=== PATIENT | male | born 2000 | race African-American/Black ===

== ENCOUNTER 2019-09-05 22:54 | Emergency (ER) | payer SELFPAY ==
[~2019-09-05 22:54] MED LIST: EPINEPHRINE 1 MG/10 ML-NACL IV ONE
== END 2019-09-06 00:57 | disposition expired ==
LOC: NAV ERS 22:54
DX: S31.000A Unspecified open wound of lower back and pelvis without penetration into retroperitoneum, initial encounter (principal); W34.00XA Accidental discharge from unspecified firearms or gun, initial encounter
CPT/HCPCS: 92950; 96374